=== PATIENT | male | born 1955 | race Caucasian/White ===

== ENCOUNTER 2017-04-11 11:32 | Emergency (ER) | payer BC ==
--- NOTE | 2017-04-30 15:43 | ER ---
ADMIT: 04/11/2017 RM/LOC: ER [facility] MR#: [id number] [address] [address] CAIT[address] FOX [address] [place] [address] Emergency Room Report SEX: M AGE: 61 : 1955 DATE: 04/11/2017 ADDENDUM: This patient comes to the ER because he is having a headache. He states that he stopped his diabetic medications a few months ago and has not taken them since he was feeling well. Now, the last few days, he has had a headache. He is thirsty all the time and just feels tired. On physical exam, he is alert and oriented, answers questions and speaks appropriately. His oral mucosa is dry. IV of normal saline was started. He was given a liter of bolus that helps his fever, he no longer had. His blood glucose was 286. They do have an appointment with Dr. Dye this afternoon, and they should keep that appointment to refill his scripts. Please see my T-sheet. ANNIE Birmingham / Chidi De Los Santos MD / modl JOB #: [id number] CC: Chidi De Los Santos MD, Attending Physician Juan J Dye MD, Family Physician
== END 2017-04-11 14:08 | disposition home or self-care (01) ==
LOC: ER 11:32
DX: R51 Headache (principal); E11.9 Type 2 diabetes mellitus without complications; I10 Essential (primary) hypertension; Z90.49 Acquired absence of other specified parts of digestive tract; Z91.14 Patient's other noncompliance with medication regimen; Z79.84 Long term (current) use of oral hypoglycemic drugs